=== PATIENT | male | born 1965 | race Caucasian/White ===

== ENCOUNTER 2016-06-11 07:39 | Emergency (ER) | payer BC ==
[2016-06-11 08:00] VITALS: BP 127/81; PULSE 107; RESP 16; TEMP 97.8
--- NOTE | 2016-06-11 08:51 | ED ---
Male Urogenital HPI - General Chief complaint: Urogenital Stated complaint: Male gu Time Seen by Provider: 06/11/16 08:37 Source: patient, RN notes reviewed Mode of arrival: ambulatory Limitations: no limitations - History of Present Illness Initial comments: This patient is a 50-year-old man with previous history of prostate cancer, status post resection about one year ago. The patient states that he had taken an injection of medication for erectile dysfunction, and then has had an erection lasting over 4 hours. He was advised by his urologist that when this occurred he should be checked in the emergency department. The patient is denying any pain to the penis, testicles or groin area. The patient states that he had not been having any abnormalities of urination prior to taking the medication. The patient states that subsequent to arriving in the emergency department he has had detumescence of his penis. MD Complaint: other Onset/Timin -: hour(s) Location: penis Quality: other (No pain) Improves with: none Worsens with: none Reports: denies other symptoms - Related Data Home Medications Medication Instructions Recorded Confirmed Desvenlafaxine Succinate [Pristiq] 50 mg PO DAILY 06/11/16 06/11/16 Losartan Potassium 100 mg PO DAILY 06/11/16 06/11/16 buPROPion HCL [Wellbutrin XL] 150 mg PO DAILY 06/11/16 06/11/16 valACYclovir [Valtrex] 500 mg PO DAILY 06/11/16 06/11/16 Allergies Allergy/AdvReac Type Severity Reaction Status Date / Time No Known Allergies Allergy Verified 06/11/16 07:57 Review of Systems ROS Statement: Those systems with pertinent positive or pertinent negative responses have been documented in the HPI. ROS Other: All systems not noted in ROS Statement are negative. Constitutional: Denies: fever, chills Gastrointestinal: Denies: abdominal pain Genitourinary: Reports: as per HPI. Denies: dysuria, hematuria, discharge, testicular pain, testicular mass Musculoskeletal: Denies: back pain Skin: Denies: rash Past Medical History Additional Past Medical History / Comment(s): PROSTATE CANCER History of Any Multi-Drug Resistant Organisms: None Reported Additional Past Surgical History / Comment(s): PROSTATE REMOVED Past Psychological History: No Psychological Hx Reported Smoking Status: Never smoker Past Alcohol Use History: Occasional Past Drug Use History: Unable to Obtain General Exam Limitations: no limitations General appearance: alert, in no apparent distress GI/Abdominal exam: Present: soft. Absent: distended, tenderness, guarding, rebound, mass, hernia exam: Present: normal inspection, circumcision, other (Penis is in the flaccid state, normal to inspection.). Absent: testicular tenderness, scrotal swelling Extremities exam: Absent: pedal edema Skin exam: Present: warm, dry, intact, normal color Course Vital Signs 06/11/16 07:57 Temperature 97.8 F Pulse Rate 107 H Respiratory 16 Rate Blood Pressure 127/81 O2 Sat by Pulse 96 Oximetry Medical Decision Making - Medical Decision Making Patient's 50-year-old man who does take medications for erectile dysfunction secondary to states surgery. He arrived for evaluation of prolonged erection, but has had resolution of this while waiting in the emergency department. The exam is within normal limits at this point and will have the patient follow up with his urologist as needed. Disposition Clinical Impression: Priapism Disposition: HOME SELF-CARE Condition: Good Instructions: Priapism (ED) Referrals: Parvez Rosas MD [Primary Care Provider] - 1-2 days Ari Church MD [STAFF PHYSICIAN] - 1-2 days
== END 2016-06-11 09:25 | disposition home or self-care (01) ==
LOC: EC 07:39
DX: N48.30 Priapism, unspecified (principal); N52.9 Male erectile dysfunction, unspecified; Z85.46 Personal history of malignant neoplasm of prostate; Z79.899 Other long term (current) drug therapy
CPT/HCPCS: 99283

== ENCOUNTER 2018-06-18 14:39 | Inpatient (IN) | payer BC ==
[2018-06-18] MEDS ORDERED: SODIUM CHLORIDE 0.9% 2,000 ML IV STA (14:46)
[2018-06-18] MEDS ORDERED: MORPHINE SULFATE 4 MG/ML SYRINGE IVP STA (14:56)
[2018-06-18] MEDS ORDERED: ONDANSETRON 4 MG/2 ML VIAL IVP STA (14:56)
[2018-06-18 15:13] LABS: Basophils % (A) 0 %; Eosinophils # (A) 0.3 k/uL (0-0.7); Eosinophils % (A) 2 %; HCT 51.3 % (39.0-53.0); HGB 17.2 gm/dL (13.0-17.5); Lymphocytes # (A) 0.8 k/uL (1.0-4.8); Lymphocytes % (A) 6 %; MCH 32.2 pg (25.0-35.0); MCHC 33.5 g/dL (31.0-37.0); MCV 96.1 fL (80.0-100.0); Mean Platelet Volume 5.8; Monocytes # (A) 0.6 k/uL (0-1.0); Monocytes % (A) 5 %; Neutrophils # (A) 11.1 k/uL (1.3-7.7); Neutrophils % (A) 85 %; Platelet Count 217 k/uL (150-450); RBC 5.34 m/uL (4.30-5.90); RDW 12.4 % (11.5-15.5); WBC 13.1 k/uL (3.8-10.6)
--- NOTE | 2018-06-18 15:16 | ED ---
Abdominal Pain HPI - General Chief Complaint: Abdominal Pain Stated Complaint: abn ct scan - sent by doctor Time Seen by Provider: 06/18/18 14:46 Source: patient, RN notes reviewed Mode of arrival: ambulatory Limitations: no limitations - History of Present Illness Initial Comments: 52-year-old male presents emergency department for abnormal outpatient CT. Patient states he saw his PCP at the beginning week for abdominal pain, bloating feeling and also constipation. Patient had CT and sent tears CT shows evidence of pancreatitis. Patient has no history of finger test he does admit that he drinks alcohol almost daily. Patient denies chest pain, shortness breath. He's had prior prostatectomy no other abdominal surgeries. - Related Data Home Medications Medication Instructions Recorded Confirmed Desvenlafaxine Succinate [Pristiq] 50 mg PO DAILY 06/11/16 06/18/18 Losartan Potassium 100 mg PO DAILY 06/11/16 06/18/18 buPROPion HCL [Wellbutrin XL] 150 mg PO DAILY 06/11/16 06/18/18 valACYclovir [Valtrex] 500 mg PO DAILY 06/11/16 06/18/18 ALPRAZolam [Xanax] 0.5 mg PO TID PRN 06/18/18 06/18/18 Acetaminophen Tab [Tylenol Tab] 650 mg PO Q4H PRN 06/18/18 06/18/18 Albuterol Sulfate [Proair Hfa] 1 puff INHALATION Q6HR PRN 06/18/18 06/18/18 Multivitamin,Therapeutic [Thera] 1 tab PO DAILY 06/18/18 06/18/18 Testosterone Cypionate 160 mg IM Q7D 06/18/18 06/18/18 [Depo-Testosterone] Allergies Allergy/AdvReac Type Severity Reaction Status Date / Time No Known Allergies Allergy Verified 06/18/18 15:21 Review of Systems ROS Statement: Those systems with pertinent positive or pertinent negative responses have been documented in the HPI. ROS Other: All systems not noted in ROS Statement are negative. Past Medical History Additional Past Medical History / Comment(s): PROSTATE CANCER History of Any Multi-Drug Resistant Organisms: None Reported Additional Past Surgical History / Comment(s): PROSTATE REMOVED Past Psychological History: No Psychological Hx Reported Smoking Status: Never smoker Past Alcohol Use History: Occasional Past Drug Use History: Marijuana General Exam Limitations: no limitations General appearance: alert, in no apparent distress Head exam: Present: atraumatic, normocephalic, normal inspection Eye exam: Present: normal appearance, PERRL, EOMI. Absent: scleral icterus, conjunctival injection, periorbital swelling ENT exam: Present: normal exam, normal oropharynx, mucous membranes moist Neck exam: Present: normal inspection. Absent: tenderness, meningismus, lymphadenopathy Respiratory exam: Present: normal lung sounds bilaterally. Absent: respiratory distress, wheezes, rales, rhonchi, stridor Cardiovascular Exam: Present: normal rhythm, tachycardia, normal heart sounds. Absent: systolic murmur, diastolic murmur, rubs, gallop, clicks GI/Abdominal exam: Present: soft, tenderness, normal bowel sounds. Absent: distended, guarding, rebound, rigid Back exam: Absent: CVA tenderness (R), CVA tenderness (L) Skin exam: Present: warm, dry, intact, normal color. Absent: rash Course Vital Signs 06/18/18 06/18/18 14:42 15:31 Temperature 98.6 F Pulse Rate 113 H 99 Respiratory 18 18 Rate Blood Pressure 143/86 123/84 O2 Sat by Pulse 99 99 Oximetry Medical Decision Making - Medical Decision Making 52-year-old male presented for abdominal pain. Patient's found to have acute pancreatitis on CT. Patient lipase within normal limits. Patient will be admitted and evaluated with IV hydration and pain control. - Lab Data Result diagrams: 06/18/18 14:55 06/18/18 14:55 Lab Results 06/18/18 06/18/18 06/18/18 Range/Units 14:55 14:55 14:55 WBC 13.1 H (3.8-10.6) k/uL RBC 5.34 (4.30-5.90) m/uL Hgb 17.2 (13.0-17.5) gm/dL Hct 51.3 (39.0-53.0) % MCV 96.1 (80.0-100.0) fL MCH 32.2 (25.0-35.0) pg MCHC 33.5 (31.0-37.0) g/dL RDW 12.4 (11.5-15.5) % Plt Count 217 (150-450) k/uL Neutrophils % 85 % Lymphocytes % 6 % Monocytes % 5 % Eosinophils % 2 % Basophils % 0 % Neutrophils # 11.1 H (1.3-7.7) k/uL Lymphocytes # 0.8 L (1.0-4.8) k/uL Monocytes # 0.6 (0-1.0) k/uL Eosinophils # 0.3 (0-0.7) k/uL Basophils # 0.0 (0-0.2) k/uL PT (9.0-12.0) sec INR (<1.2) APTT (22.0-30.0) sec Sodium 133 L (137-145) mmol/L Potassium 4.0 (3.5-5.1) mmol/L Chloride 92 L (98-107) mmol/L Carbon Dioxide 27 (22-30) mmol/L Anion Gap 14 mmol/L BUN 18 (9-20) mg/dL Creatinine 1.20 (0.66-1.25) mg/dL Est GFR (CKD-EPI)AfAm 81 (>60 ml/min/1.73 sqM) Est GFR (CKD-EPI)NonAf 70 (>60 ml/min/1.73 sqM) Glucose 80 (74-99) mg/dL Plasma Lactic Acid Les 1.0 (0.7-2.0) mmol/L Calcium 8.6 (8.4-10.2) mg/dL Total Bilirubin 2.2 H (0.2-1.3) mg/dL AST 30 (17-59) U/L ALT 48 (21-72) U/L Alkaline Phosphatase 86 (38-126) U/L Total Protein 7.4 (6.3-8.2) g/dL Albumin 4.2 (3.5-5.0) g/dL Amylase 69 (30-110) U/L Lipase 301 H (23-300) U/L Urine Color Urine Appearance (Clear) Urine pH (5.0-8.0) Ur Specific [place] (1.001-1.035) Urine Protein (Negative) Urine Glucose (UA) (Negative) Urine Ketones (Negative) Urine Blood (Negative) Urine Nitrite (Negative) Urine Bilirubin (Negative) Urine Urobilinogen (<2.0) mg/dL Ur Leukocyte Esterase (Negative) Urine WBC (0-5) /hpf Ur Squamous Epith Cells (0-4) /hpf 06/18/18 06/18/18 Range/Units 14:55 14:55 WBC (3.8-10.6) k/uL RBC (4.30-5.90) m/uL Hgb (13.0-17.5) gm/dL Hct (39.0-53.0) % MCV (80.0-100.0) fL MCH (25.0-35.0) pg MCHC (31.0-37.0) g/dL RDW (11.5-15.5) % Plt Count (150-450) k/uL Neutrophils % % Lymphocytes % % Monocytes % % Eosinophils % % Basophils % % Neutrophils # (1.3-7.7) k/uL Lymphocytes # (1.0-4.8) k/uL Monocytes # (0-1.0) k/uL Eosinophils # (0-0.7) k/uL Basophils # (0-0.2) k/uL PT 10.0 (9.0-12.0) sec INR 0.9 (<1.2) APTT 27.2 (22.0-30.0) sec Sodium (137-145) mmol/L Potassium (3.5-5.1) mmol/L Chloride (98-107) mmol/L Carbon Dioxide (22-30) mmol/L Anion Gap mmol/L BUN (9-20) mg/dL Creatinine (0.66-1.25) mg/dL Est GFR (CKD-EPI)AfAm (>60 ml/min/1.73 sqM) Est GFR (CKD-EPI)NonAf (>60 ml/min/1.73 sqM) Glucose (74-99) mg/dL Plasma Lactic Acid Les (0.7-2.0) mmol/L Calcium (8.4-10.2) mg/dL Total Bilirubin (0.2-1.3) mg/dL AST (17-59) U/L ALT (21-72) U/L Alkaline Phosphatase (38-126) U/L Total Protein (6.3-8.2) g/dL Albumin (3.5-5.0) g/dL Amylase (30-110) U/L Lipase (23-300) U/L Urine Color Light Yellow Urine Appearance Clear (Clear) Urine pH 6.0 (5.0-8.0) Ur Specific [place] 1.026 (1.001-1.035) Urine Protein Negative (Negative) Urine Glucose (UA) Negative (Negative) Urine Ketones 1+ H (Negative) Urine Blood Trace H (Negative) Urine Nitrite Negative (Negative) Urine Bilirubin Negative (Negative) Urine Urobilinogen <2.0 (<2.0) mg/dL Ur Leukocyte Esterase Negative (Negative) Urine WBC <1 (0-5) /hpf Ur Squamous Epith Cells <1 (0-4) /hpf Disposition Clinical Impression: Acute pancreatitis, Abdominal pain Disposition: ADMITTED IP TO THIS HOSP Condition: Fair Referrals: Parvez Rosas MD [Primary Care Provider] - 1-2 days
[2018-06-18 15:19] LABS: Appearance,Urine Clear (Clear); Bilirubin,Urine Negative (Negative); Blood,Urine Trace (Negative); Color,Urine Light Yellow; Glucose,Urine (UA) Negative (Negative); Ketones,Urine 1+ (Negative); Leukocyte Esterase,Urine Negative (Negative); Nitrite,Urine Negative (Negative); Protein,Urine Negative (Negative); Specific Gravity,Urine 1.026 (1.001-1.035); Squamous Epithelial Cell,Urine <1 /hpf (0-4); Urobilinogen,Urine <2.0 mg/dL (<2.0); WBC,Urine <1 /hpf (0-5)
[2018-06-18 15:23] LABS: Albumin 4.2 g/dL (3.5-5.0); Calcium 8.6 mg/dL (8.4-10.2); Total Bilirubin 2.2 mg/dL (0.2-1.3); Total Protein 7.4 g/dL (6.3-8.2)
[2018-06-18 15:27] LABS: INR 0.9 (<1.2); Partial Thromboplastin Time 27.2 sec (22.0-30.0)
[2018-06-18] MEDS ORDERED: NALOXONE 0.4 MG/ML 1 ML VIAL IV PRN (15:42)
[2018-06-18] MEDS ORDERED: MORPHINE SULFATE 4 MG/ML SYRINGE IV PRN (15:42)
[2018-06-18] MEDS ORDERED: ONDANSETRON 4 MG/2 ML VIAL IVP PRN (15:42)
[2018-06-18] MEDS ORDERED: LORazepam 2 MG/ML INJ IV PRN ×3 (15:43)
[2018-06-18] MEDS ORDERED: SODIUM CHLORIDE 0.9% 1,000 ML IV SCH (15:45)
[2018-06-18 17:52] VITALS: BMI 26.5
[2018-06-18] MEDS: THIAMINE 100 MG TAB PO SCH (18:00)
[2018-06-18] MEDS ORDERED: ACETAMINOPHEN TAB 325 MG TAB PO PRN (18:35)
[2018-06-18] MEDS ORDERED: ALBUTEROL NEBULIZED 2.5 MG/3 ML INHALATION PRN (18:35)
[2018-06-18] MEDS: HYDROmorphone 0.5 MG/0.5 ML SYRINGE IVP PRN (20:02)
[2018-06-18] MEDS: DIAZEPAM 5 MG TAB PO SCH (22:43)
[2018-06-18] MEDS: ENOXAPARIN 40 MG/0.4 ML SYRINGE SQ SCH (22:43)
[2018-06-18] MEDS: LACTATED RINGERS 1,000 ML IV SCH (22:44)
--- NOTE | 2018-06-18 23:22 | HP ---
HISTORY AND PHYSICAL DATE OF ADMISSION: 06/18/2018 DATE OF SERVICE: 06/18/2018 PRESENTING COMPLAINT: Abdominal pain. HISTORY OF PRESENTING COMPLAINT: This is a 52-year-old patient who follows with Dr. Rosas out of [place]. Chronic stable medical conditions include hypertension, surgery for prostate cancer, herpes, anxiety and depression which are controlled. Patient has been drinking anywhere from 3/4 to a pint a day for more than 30 years. Patient 4 days ago started off with increasing abdominal pain, distention, bloating, nausea, and went to see Dr. Rosas, who did order a CT scan of the abdomen. The patient has not had a bowel movement for [address] scan came back showing some edema in the tail of the pancreas, and the patient was therefore admitted to the hospital, made n.p.o. Patient's amylase was 69, lipase was 301. There has been no fever or chills. No vomiting. White count was slightly elevated. Patient's abdominal pain is still present, though better. REVIEW OF SYSTEMS: CONSTITUTIONAL: Tired. HEENT: None. RESPIRATORY: None. CARDIOVASCULAR: None. GASTROINTESTINAL: As above. GENITOURINARY: None. MUSCULOSKELETAL: None. DERMATOLOGICAL: None. HEMATOLOGICAL: None. LYMPHATICS: None. PSYCHIATRY: None. NEUROLOGICAL: None. PAST MEDICAL HISTORY: 1. Hypertension. 2. Prostate cancer with surgery. 3. Herpes. PAST SURGICAL HISTORY: Prostatectomy. PSYCH HISTORY: Anxiety, depression. SOCIAL HISTORY: Drinks anywhere from half to a pint of vodka a day. No smoking. Marijuana rarely. Patient lives with his daughter and is an electrician apprentice powerhouse by trade. FAMILY HISTORY: Pacemaker placement. HOME MEDICATIONS: 1. Xanax 0.5 p.o. t.i.d. p.r.n. 2. Depo-Testosterone 160 mg IM every 7 days. 3. ProAir 1 puff q.6 p.r.n. 4. Multivitamin 1 tablet p.o. daily. 5. Tylenol 650 mg q.6 p.r.n. 6. Valtrex 500 mg p.o. daily. 7. Wellbutrin XL 150 mg p.o. daily. 8. Losartan 100 mg p.o. daily. 9. Pristiq 50 mg p.o. daily. ALLERGIES: NONE. PHYSICAL EXAMINATION: Temperature 98.6, pulse 113, respiration 18, blood pressure 143/86, pulse ox 99% on room air. GENERAL APPEARANCE: Average build. Lying in bed, slightly anxious-appearing. EYES: Pupils equal. Conjunctival icterus present. HEENT: External appearance of nose and ears normal. Oral cavity normal. NECK: JVD not raised. Mass not palpable. RESPIRATORY: Effort normal. LUNGS: Fair air entry. CARDIOVASCULAR: First and second sounds normal. No edema. ABDOMEN: Minimally distended. Epigastric tenderness. No guarding or rigidity. Liver and spleen not palpable. LYMPHATIC: No lymph node palpable in neck or axillae. PSYCHIATRY: Alert and oriented times x3. Mood and affect slightly anxious-appearing. NEUROLOGICAL: Pupils equal. Cranial nerves grossly intact. Power and sensation grossly intact. DERMATOLOGICAL: There are spider nevi in the upper chest wall. INVESTIGATIONS: White count 13.1, hemoglobin 17.2, potassium 4. BUN and creatinine are normal. Total bilirubin 2.2. Amylase 69, lipase 301. CT scan of the abdomen shows inflammatory changes centered at the pancreatic tail with moderate surrounding inflammatory fat stranding there. ASSESSMENT: 1. Acute pancreatitis with a severe episode starting 4 days ago with some improvement in pain, showing associated findings on the CT scan of the abdomen secondary to chronic alcoholism. 2. Chronic alcoholism. 3. Hyperbilirubinemia. 4. Essential hypertension. 5. Anxiety and depression not otherwise specified. PLAN: At this point, the patient has been made n.p.o. and is given IV fluids. Repeat amylase and lipase in the morning. Start the patient on Valium 2.5 three times a day for DVT prophylaxis. CIWA scale is in place. Patient was counseled about alcohol. Questions were answered. MMODL / IJN: [id number] /
[2018-06-19] MEDS: HYDROmorphone 0.5 MG/0.5 ML SYRINGE IVP PRN ×3 (00:52→12:23)
[2018-06-19] MEDS: LACTATED RINGERS 1,000 ML IV SCH ×3 (04:25→15:30)
[2018-06-19] MEDS: DIAZEPAM 5 MG TAB PO SCH ×3 (05:47→20:44)
[2018-06-19] MEDS: DESVENLAFAXINE SUCCINATE 50 MG TAB.ER.24H PO SCH (07:32)
[2018-06-19] MEDS: LOSARTAN 50 MG TAB PO SCH (07:32)
[2018-06-19] MEDS: buPROPion XL 150 MG TAB.ER.24H PO SCH (07:33)
[2018-06-19] MEDS: FAMOTIDINE 20 MG TAB PO SCH ×2 (07:33→20:44)
[2018-06-19] MEDS: valACYclovir 500 MG TAB PO SCH (07:33)
[2018-06-19] MEDS: ENOXAPARIN 40 MG/0.4 ML SYRINGE SQ SCH (07:33)
[2018-06-19] MEDS ORDERED: PANTOPRAZOLE 40 MG/10 ML VIAL IV SCH (09:00)
[2018-06-19 09:07] LABS: Basophils % (A) 0 %; Eosinophils # (A) 0.2 k/uL (0-0.7); Eosinophils % (A) 2 %; HCT 46.3 % (39.0-53.0); HGB 15.1 gm/dL (13.0-17.5); Lymphocytes # (A) 0.7 k/uL (1.0-4.8); Lymphocytes % (A) 6 %; MCH 32.6 pg (25.0-35.0); MCHC 32.7 g/dL (31.0-37.0); MCV 99.7 fL (80.0-100.0); Mean Platelet Volume 6.4; Monocytes # (A) 0.6 k/uL (0-1.0); Monocytes % (A) 6 %; Neutrophils % (A) 85 %; Platelet Count 201 k/uL (150-450); RBC 4.64 m/uL (4.30-5.90); RDW 12.6 % (11.5-15.5); WBC 10.7 k/uL (3.8-10.6)
[2018-06-19 09:22] LABS: Albumin 3.1 g/dL (3.5-5.0); Calcium 8.3 mg/dL (8.4-10.2); Potassium 4.1 mmol/L (3.5-5.1); Total Bilirubin 1.4 mg/dL (0.2-1.3); Total Protein 5.8 g/dL (6.3-8.2)
[2018-06-19 11:26] LABS: Creatine Kinase 56 U/L (55-170)
[2018-06-19 11:38] LABS: Creatine Kinase MB 0.7 ng/mL (0.0-2.4); Troponin I <0.012 ng/mL (0.000-0.034)
[2018-06-19] MEDS: MULTIVITAMINS, THERA 1 EACH TAB PO SCH (12:23)
[2018-06-19] MEDS: THIAMINE 100 MG TAB PO SCH ×2 (12:23→15:29)
--- NOTE | 2018-06-19 17:57 | PN ---
PROGRESS NOTE DATE OF SERVICE: 06/19/2018 PRESENTING COMPLAINT: Abdominal pain. INTERVAL HISTORY: This patient, who has been drinking for quite a while, presented with acute pancreatitis. Still having abdominal pain. He is on a prophylactic dose of Valium for DTs. Lying in bed. Still required IV pain medications earlier today. REVIEW OF SYSTEMS: Done for constitutional, cardiovascular, GI, pulmonary; relevant findings as above. CURRENT MEDICATIONS: Reviewed. They include IV fluids. PHYSICAL EXAMINATION: VITAL SIGNS: Temperature 98.4, pulse 93, respiration 18, blood pressure 122/68, pulse ox 96% on room air. GENERAL APPEARANCE: Lying in bed, awake. Slightly anxious. EYES: Pupils equal. Conjunctivae icteric. NECK: JVD not raised. Mass not palpable. RESPIRATORY: Effort normal. Lungs are clear. CARDIOVASCULAR: First and second sounds normal. No edema. ABDOMEN: Epigastric tenderness, mild. No guarding or rigidity. Liver and spleen not palpable. PSYCHIATRY: Alert and oriented x3. Mood and affect normal. INVESTIGATIONS: White count 10.7, potassium 4.1. Amylase 35, lipase 208, total bilirubin 1.4. ASSESSMENT: 1. Acute pancreatitis with some clinical improvement secondary to alcoholism. 2. Chronic alcoholism. 3. Hyperbilirubinemia, improving. 4. Essential hypertension. 5. Anxiety, depression not otherwise specified. PLAN: Will start the patient on clear liquids. Other medication and treatment plan to continue. MMODL / IJN: [id number] /
[2018-06-20] MEDS: LACTATED RINGERS 1,000 ML IV SCH ×4 (00:43→22:11)
[2018-06-20] MEDS: FAMOTIDINE 20 MG TAB PO SCH ×2 (08:31→22:11)
[2018-06-20] MEDS: LOSARTAN 50 MG TAB PO SCH (08:31)
[2018-06-20] MEDS: DIAZEPAM 5 MG TAB PO SCH ×2 (08:31→22:11)
[2018-06-20] MEDS: ENOXAPARIN 40 MG/0.4 ML SYRINGE SQ SCH (08:32)
[2018-06-20] MEDS: buPROPion XL 150 MG TAB.ER.24H PO SCH (08:32)
[2018-06-20] MEDS: DESVENLAFAXINE SUCCINATE 50 MG TAB.ER.24H PO SCH (08:32)
[2018-06-20] MEDS: valACYclovir 500 MG TAB PO SCH (08:32)
[2018-06-20] MEDS: THIAMINE 100 MG TAB PO SCH ×2 (13:02→17:36)
[2018-06-20] MEDS: MULTIVITAMINS, THERA 1 EACH TAB PO SCH (13:02)
--- NOTE | 2018-06-21 00:48 | PN ---
PROGRESS NOTE DATE OF SERVICE: 06/20/2018. PRESENTING COMPLAINT: Acute pancreatitis. INTERVAL HISTORY: This patient presented with alcohol-induced acute pancreatitis. Did better with clear liquids. Had some pain last night on the left side. Doing better this morning. Also on a prophylactic dose of Valium, doing better. REVIEW OF SYSTEMS: Done for constitutional, cardiovascular, GI, pulmonary; relevant findings as above. CURRENT MEDICATIONS: Reviewed, that include Valium. PHYSICAL EXAMINATION: Temperature 98.4, pulse 90, respirations 16, blood pressure 150/86, pulse ox 98% on room air. GENERAL APPEARANCE: Sitting up comfortable. EYES: Pupils equal. Conjunctivae normal. EYES: Pupils equal. Conjunctiva icteric. NECK: JVD not raised. Mass not palpable. Respiratory effort normal. LUNGS: Clear. CARDIOVASCULAR: 1st and 2nd heart sounds. No edema. ABDOMEN: Soft. No tenderness. No guarding or rigidity. Liver and spleen not palpable. PSYCHIATRY: Alert and oriented x3. Mood and affect normal. INVESTIGATIONS: No labs from today. ASSESSMENT: 1. Acute pancreatitis with further clinical improvement secondary to alcoholism. 2. Chronic alcoholism. 3. Hyperbilirubinemia, improving. 4. Essential hypertension. 5. Anxiety and depression, not otherwise specified. PLAN: Care was discussed with the patient. Clinically continues to improve. Will change to full liquid diet this evening and, if tolerated, advance diet tomorrow morning. Care was discussed with the patient. Encouraged to ambulate. TERI / ROB: [id number] /
[2018-06-21 08:05] VITALS: RESP 16
[2018-06-21] MEDS: FAMOTIDINE 20 MG TAB PO SCH (08:45)
[2018-06-21] MEDS: valACYclovir 500 MG TAB PO SCH (08:45)
[2018-06-21] MEDS: ENOXAPARIN 40 MG/0.4 ML SYRINGE SQ SCH (08:45)
[2018-06-21] MEDS: DESVENLAFAXINE SUCCINATE 50 MG TAB.ER.24H PO SCH (08:45)
[2018-06-21] MEDS: buPROPion XL 150 MG TAB.ER.24H PO SCH (08:45)
[2018-06-21] MEDS: LOSARTAN 50 MG TAB PO SCH (08:45)
[2018-06-21] MEDS ORDERED: DIAZEPAM 5 MG TAB PO SCH (09:00)
[2018-06-21 10:08] LABS: ALT 34 U/L (21-72); AST 30 U/L (17-59); Albumin 3.4 g/dL (3.5-5.0); Alkaline Phosphatase 68 U/L (38-126); Anion Gap 9 mmol/L; Blood Urea Nitrogen 8 mg/dL (9-20); Calcium 9.4 mg/dL (8.4-10.2); Carbon Dioxide 30 mmol/L (22-30); Chloride 97 mmol/L (98-107); Glucose 141 mg/dL (74-99); Potassium 4.3 mmol/L (3.5-5.1); Sodium 136 mmol/L (137-145); Total Bilirubin 0.9 mg/dL (0.2-1.3); Total Protein 6.4 g/dL (6.3-8.2)
[2018-06-21 14:51] VITALS: BP 152/96; PULSE 104; TEMP 97.1
--- NOTE | 2018-06-22 01:11 | DS ---
DISCHARGE SUMMARY DATE OF ADMISSION: 06/18/2018 DATE OF DISCHARGE: 06/21/2018. FINAL DIAGNOSES: 1. Acute pancreatitis secondary to alcoholism. 2. Chronic alcoholism. 3. Hyperbilirubinemia, improving. 4. Essential hypertension. 5. Anxiety/depression not otherwise specified. HOSPITAL COURSE: This patient who drinks a significant amount of alcohol for a long-standing presented with abdominal pain and a CT scan done by his PCP did confirm acute pancreatitis. The patient's pancreatic numbers were not too bad, but he is having some abdominal symptoms. The patient was treated conservatively, made n.p.o. on IV fluids and numbers resulted normal. The patient at length was discussed especially today about not to touch the alcohol as it is very detrimental to him. The patient's total bilirubin did come down from 2.2 down to 0.9. Several questions were answered. PHYSICAL EXAMINATION: VITAL SIGNS: Temperature 97.1. Pulse 59, respirations 16, blood pressure 152/96, pulse ox 96% on room air. ABDOMEN: Soft, nontender. Discussion and discharge planning more than 35 minutes. DISCHARGE MEDICATIONS: 1. Pristiq 50 mg p.o. daily. 2. Losartan 100 mg p.o. daily. 3. Wellbutrin XL 150 mg p.o. daily. 4. Valtrex 500 mg p.o. daily. 5. Xanax 0.5 p.o. t.i.d. p.r.n. 6. Tylenol 650 mg q.4 p.r.n. 7. ProAir 1 puff q.6h p.r.n. 8. Multivitamin 1 tablet p.o. daily. 9. Antabuse 500 mg p.o. daily for 7 days then 250 mg a day. 10.Pepcid 20 mg b.i.d. DIET: Low-fat soft bland. No alcohol. FOLLOWUP: Follow up with Dr. Rosas in [address] Rosas in [place]. MMODL / IJN: [id number] /
== END 2018-06-21 15:56 | disposition home or self-care (01) | DRG 439 ==
LOC: EC 14:39 → 4MS4W 15:39
PROVIDERS: ADMIT Hospitalist; ATTEND Hospitalist
DX: K85.20 Alcohol induced acute pancreatitis without necrosis or infection (principal); R17 Unspecified jaundice; F10.20 Alcohol dependence, uncomplicated; I10 Essential (primary) hypertension; F32.9 Major depressive disorder, single episode, unspecified; F41.9 Anxiety disorder, unspecified; K59.00 Constipation, unspecified; Z79.890 Hormone replacement therapy; Z79.899 Other long term (current) drug therapy; Z90.79 Acquired absence of other genital organ(s); Z85.46 Personal history of malignant neoplasm of prostate; Z86.19 Personal history of other infectious and parasitic diseases
CPT/HCPCS: 36415; 80053; 81001; 82150; 82550; 82553; 83605; 83690; 84484; 85025; 85610; 85730; 93005; 96361; 96374; 96375; 99284

== ENCOUNTER → 2018-06-18 | Outpatient (CLI) | payer BC ==
--- NOTE | 2018-06-18 14:25 | CT ---
EXAMINATION TYPE: CT abdomen pelvis w con DATE OF EXAM: 06/18/2018 COMPARISON: NONE HISTORY: 52-year-old male Generalized abdominal pain. TECHNIQUE: Contiguous axial scanning of the abdomen and pelvis following administration of 100 ml Iso skip 300 IV contrast. Delayed images through the kidneys and coronal/sagittal reconstructions perform ed. CT DLP: 811.1 mGycm Automated exposure control for dose reduction was used. FINDINGS: Heart normal size without pericardial effusion. Strandy atelectasis or scarring at the left base. No pleural effusion. No focal liver lesion or biliary ductal dilatation. Portal venous system is patent. Gallbladder, adrenal glands, kidneys, and spleen appear within normal limits. There is inflammatory change centered along the pancreatic tail with tracking plate like fluid along the left retroperitoneum measuring 4.7 cm wide, 9 mm thick, and 3.0 cm craniocaudal. There is focal h ypodensity within the inferior aspect of the pancreatic tail and moderate surrounding inflammatory fa t stranding here. Prominent ingested debris and contrast material in the cecum which measures 5.7 cm wide. Small bowel loops are mildly dilated measuring up to 3.5 cm without a discrete transition point. Moderate stool i n the ascending colon. No pericolonic inflammatory change seen. No mesenteric or retroperitoneal lymphadenopathy. Bladder not distended. No abnormal fluid collection in the pelvis pelvic lymphadenopathy seen. Bones: Mild degenerative changes at the hips. Old healed right posterior rib fracture deformities. No osseous destructive process. IMPRESSION: 1. ACUTE PANCREATITIS CENTERED AT THE PANCREATIC TAIL. THERE IS A PLATELIKE PERIPANCREATIC FLUID ADELINA ECTION TRACKING ALONG THE LEFT RETROPERITONEUM MEASURING 4.7 X 0.9 X 3.0 CM. 2. THE INFERIOR ASPECT OF THE PANCREATIC TAIL SHOWS FOCAL HYPODENSITY. CLOSE CLINICAL SURVEILLANCE RE COMMENDED TO EXCLUDE AN EARLY REGION OF PANCREATIC NECROSIS. 3. MILDLY DILATED SMALL BOWEL LOOPS MEASURING UP TO 3.5 CM SUGGESTING SECONDARY ILEUS.
== END | disposition home or self-care (01) ==
LOC: RADCTMAIN 12:13
PROVIDERS: ATTEND Family Medicine
DX: K85.90 Acute pancreatitis without necrosis or infection, unspecified (principal)
CPT/HCPCS: 74177; Q9967

== ENCOUNTER → 2018-10-29 | Outpatient (CLI) | payer BC ==
--- NOTE | 2018-10-29 12:09 | CT ---
EXAMINATION TYPE: CT abdomen pelvis wo/w con DATE OF EXAM: 10/29/2018 COMPARISON: 06/18/2018 HISTORY: Generalized abdominal pain CT DLP: 1022.6 mGycm Automated exposure control for dose reduction was used. TECHNIQUE: Helical acquisition of images was performed from the lung bases through the pelvis. CONTRAST: Performed with Oral Contrast and without and with IV Contrast, patient injected with 100 mL of Isovue 300. FINDINGS: LUNG BASES: Minimal focal pleural thickening is seen of the right lung base on series 6 image 1 measu ring 6 mm. Minimal strand-like atelectasis at the lung bases. LIVER/GB: Hepatic steatosis is evident. No suspicious hepatic lesion. No intrahepatic biliary duct di latation. No radiopaque calculi. Small intramuscular lipoma seen adjacent to the liver on series 5 im age 21 measuring 1 cm without internal complexity. PANCREAS: No ductal dilatation. Pancreas enhances homogeneously. The previously seen inflammatory adriana nge surrounding the pancreatic tail has resolved in the interim. SPLEEN: No enlargement. ADRENALS: No nodularity or thickening. KIDNEYS: Unenhanced images demonstrate no evidence of nephrolithiasis. Very minimal nonspecific bilat eral perinephric fat stranding is seen. The kidneys enhance symmetrically and are without hydronephro sis. On delayed images the kidneys also excrete symmetrically. FREE AIR: No free air is visualized. ADENOPATHY: Superficial inguinal lymph nodes do measure up to 1.0 cm in short axis. No greater than 1 cm short axis lymph node is seen in the abdomen or pelvis. REPRODUCTIVE ORGANS: Prostate gland is either extremely diminutive and atrophic or absent. There is e ither low lying urinary bladder or prior TURP. URINARY BLADDER: No significant abnormality is seen. OSSEOUS STRUCTURES: Again there are old healed fracture deformities of the ribs on the right. Mild m ultilevel degenerative changes of the spine and hips. BOWEL: Moderate degree colonic fecal stasis. No dilated large or small bowel. OTHER: Very small fat filled periumbilical hernia. Focal inflammatory fat stranding is seen in the right superficial inguinal region extending into the superior right scrotum with questionable skin thickening measuring up to 5 mm. No subcutaneous emphys wilbert seen at the time the examination. IMPRESSION: 1.FAT STRANDING IN THE RIGHT SUPERFICIAL INGUINAL REGION AND PROMINENT LYMPH NODES EXTENDING INTO THE SUPERIOR SCROTUM WITH QUESTIONABLE SCROTAL WALL THICKENING. CORRELATE FOR CELLULITIS OR RECENT TRAUM A. NO CURRENT SUBCUTANEOUS EMPHYSEMA IS SEEN AT THE TIME OF EXAMINATION TO SUGGEST NECROTIZING FASCII TIS ALTHOUGH CLOSE CLINICAL SURVEILLANCE WOULD BE RECOMMENDED IF THERE IS NO HISTORY OF CELLULITIS OR TRAUMA. 2. THE PREVIOUSLY SEEN INFLAMMATORY CHANGE AND HYPODENSITY AT THE PANCREATIC TAIL HAVE ENTIRELY RESOL AVILA IN THE INTERIM. NO PANCREATIC DUCTAL DILATATION OR MASSES SEEN. NO PERIPANCREATIC FLUID COLLECTIO N.
== END | disposition home or self-care (01) ==
LOC: RADCTMAIN 09:39
PROVIDERS: ATTEND Family Medicine
DX: R10.84 Generalized abdominal pain (principal)
CPT/HCPCS: 74178; Q9967

== ENCOUNTER → 2019-11-01 | Outpatient (CLI) | payer BC | END | disposition home or self-care (01) | LOC: LABWHC1 10:34 | PROVIDERS: ATTEND Surgery Plastic and Reconstructive Surgery | DX: Z11.59 Encounter for screening for other viral diseases (principal) ==

== ENCOUNTER 2019-11-03 08:21 | Day surgery (SDC) | payer BC ==
[2019-10-29 15:53] VITALS: BMI 26.5
--- NOTE | 2019-11-02 20:43 | P.GSHP ---
History of Present Illness H&P Date: 11/03/19 CHIEF COMPLAINT: Colon screen HISTORY OF PRESENT ILLNESS: The patient is a 54-year-old male who presents for colon screen. Lower endoscopy was offered for further evaluation and management. PAST MEDICAL HISTORY: Please see list. PAST SURGICAL HISTORY: Please see list. MEDICATIONS: Please see list. ALLERGIES: Please see list. SOCIAL HISTORY: No illicit drug use FAMILY HISTORY: No reports of Crohn disease or ulcerative colitis. REVIEW OF ORGAN SYSTEMS: CONSTITUTIONAL: No reports of fevers or chills. PHYSICAL EXAM: VITAL SIGNS: Stable GENERAL: Well-developed pleasant in no acute distress. HEENT: No scleral icterus. Extraocular movements grossly intact. Moist buccal mucosa. NECK: Supple without lymphadenopathy. CHEST: Unlabored respirations. Equal bilateral excursions. CARDIOVASCULAR: Regular rate and rhythm. Distal 2+ pulses. ABDOMEN: Soft, nontender, nondistended. MUSCULOSKELETAL: No clubbing, cyanosis, or edema. ASSESSMENT: 1. Colon screen. PLAN: 1. Recommend proceeding with a lower endoscopy Past Medical History Past Medical History: Cancer, GERD/Reflux Additional Past Medical History / Comment(s): PROSTATE CANCER, herpes, allergies, BLOOD PRESSURE CONTROLLED AT THIS TIME History of Any Multi-Drug Resistant Organisms: None Reported Past Surgical History: Prostate Surgery Additional Past Surgical History / Comment(s): PROSTATE REMOVED Past Anesthesia/Blood Transfusion Reactions: No Reported Reaction Smoking Status: Never smoker - Past Family History Mother Family Medical History: AICD/Pacemaker Medications and Allergies Home Medications Medication Instructions Recorded Confirmed Type Desvenlafaxine Succinate [Pristiq] 50 mg PO DAILY 06/11/16 10/29/19 History buPROPion HCL [Wellbutrin XL] 150 mg PO DAILY 06/11/16 10/29/19 History valACYclovir [Valtrex] 500 mg PO DAILY 06/11/16 10/29/19 History ALPRAZolam [Xanax] 0.5 mg PO TID PRN 06/18/18 10/29/19 History Albuterol Sulfate [Proair Hfa] 1 puff INHALATION Q6HR PRN 06/18/18 10/29/19 History Multivitamin,Therapeutic [Thera] 1 tab PO DAILY 06/18/18 10/29/19 History Testosterone Cypionate 160 mg IM Q7D 06/18/18 10/29/19 History [Depo-Testosterone] Famotidine [Pepcid] 20 mg PO DAILY 10/29/19 10/29/19 History Oxybutynin Chloride [Oxybutynin 15 mg PO DAILY 10/29/19 10/29/19 History Chloride ER] Allergies Allergy/AdvReac Type Severity Reaction Status Date / Time No Known Allergies Allergy Verified 10/29/19 15:39
[~2019-11-03 08:21] MED LIST: LACTATED RINGERS 1,000 ML IV SCH; LIDOCAINE 1% (10MG/ML) FOR IV START INTRADERMA PRN
[2019-11-03 08:41] VITALS: TEMP 98
[2019-11-03] MEDS ORDERED: PROPOFOL 10 MG/ML 20 ML VIAL IV ONE (09:06)
--- NOTE | 2019-11-03 09:39 | P.HPADDEND ---
H&P Addendum H&P Addendum Date: 11/03/19 Patient reports having multiple colonoscopies including past history of colon polyps over colonoscopy over 5 years ago. Will proceed with lower endoscopy
--- NOTE | 2019-11-03 09:42 | P.PCN ---
Date of Procedure: 11/03/19 Description of Procedure: PREOPERATIVE DIAGNOSIS: Personal history of colon polyps POSTOPERATIVE DIAGNOSIS: Personal history of colon polyps Tubular adenoma, cecum Tubular adenoma, ascending colon Internal hemorrhoids, grade 2 OPERATION: Colonoscopy to the ileocecal valve and appendiceal orifice. Colonoscopy with multiple hot snare polypectomies SURGEON: Marnie Painting MD. ANESTHESIA: MAC. INDICATIONS: The patient is an 54-year-old male who presents with personal history of colon polyps. Last colonoscopy over 5 years. Benefits and risks were described and informed consent was obtained. DESCRIPTION OF PROCEDURE: The patient had undergone Suprep. He had been brought into the operating room and laid in the left lateral decubitus position. After adequate intravenous sedation, the rectum was examined with 2% lidocaine jelly. The prostate was unremarkable. External hemorrhoids were encountered. The rectal tone was within normal limits. No lesions were palpated in the rectal vault. An Olympus colonoscope was advanced until the ileocecal valve and appendiceal orifice were clearly viewed. The prep was fair. No aigmoid diverticulosis was encountered. Multiple colonic polyps were found and snare polypectomy. No evidence of focal colitis was found. Retroflexion of the scope demonstrated grade 2 internal hemorrhoids without active bleeding or inflammation. The colon was desufflated. The patient had tolerated the procedure well. Withdrawal time was over 6 minutes. FINDINGS: Aronchick preparation quality scale 2 (1-5) Internal hemorrhoids, grade 2 External hemorrhoids, grade 2 No arteriovenous malformations. No sigmoid diverticulosis Removal of 2 polyps: - Snare polypectomy cecum/ileocecal valve, 10 mm tubulovillous adenoma polyp. - Snare polypectomy ascending colon, 8 mm flat villous adenoma polyp. No focal colitis. RECOMMENDATIONS: 1. Given severity of tubular adenomas, recommend repeat colonoscopy 2 years, 2021. 2. Recommend at least a 2 day colon prep. Plan - Discharge Summary Discharge Rx Participant: No New Discharge Prescriptions: Continue buPROPion HCL [Wellbutrin XL] 150 mg PO DAILY Desvenlafaxine Succinate [Pristiq] 50 mg PO DAILY valACYclovir [Valtrex] 500 mg PO DAILY ALPRAZolam [Xanax] 0.5 mg PO TID PRN PRN Reason: Anxiety Testosterone Cypionate [Depo-Testosterone] 160 mg IM Q7D Albuterol Sulfate [Proair Hfa] 1 puff INHALATION Q6HR PRN PRN Reason: Shortness Of Breath Multivitamin,Therapeutic [Thera] 1 tab PO DAILY Oxybutynin Chloride [Oxybutynin Chloride ER] 15 mg PO DAILY Famotidine [Pepcid] 20 mg PO DAILY Discharge Medication List Desvenlafaxine Succinate [Pristiq] 50 mg PO DAILY 06/11/16 [History] buPROPion HCL [Wellbutrin XL] 150 mg PO DAILY 06/11/16 [History] valACYclovir [Valtrex] 500 mg PO DAILY 06/11/16 [History] ALPRAZolam [Xanax] 0.5 mg PO TID PRN 06/18/18 [History] Albuterol Sulfate [Proair Hfa] 1 puff INHALATION Q6HR PRN 06/18/18 [History] Multivitamin,Therapeutic [Thera] 1 tab PO DAILY 06/18/18 [History] Testosterone Cypionate [Depo-Testosterone] 160 mg IM Q7D 06/18/18 [History] Famotidine [Pepcid] 20 mg PO DAILY 10/29/19 [History] Oxybutynin Chloride [Oxybutynin Chloride ER] 15 mg PO DAILY 10/29/19 [History] Follow up Appointment(s)/Referral(s): Marnie Painting MD [STAFF PHYSICIAN] - As Needed Patient Instructions/Handouts: *Surgery [facility] - (Anesthesia) Endoscopy Discharge Instructions, Colorectal Polyps (DC), Colonoscopy (DC) Activity/Diet/Wound Care/Special Instructions: Repeat colonoscopy in 2 years, 2021 Discharge Disposition: HOME SELF-CARE
[2019-11-03 10:01] VITALS: BP 126/76; PULSE 74; RESP 18
== END 2019-11-03 10:19 | disposition home or self-care (01) ==
LOC: ORWHC2ENDO 08:21
PROVIDERS: ATTEND Surgery Plastic and Reconstructive Surgery
DX: D12.2 Benign neoplasm of ascending colon (principal); D12.0 Benign neoplasm of cecum; K64.4 Residual hemorrhoidal skin tags; K64.1 Second degree hemorrhoids; Z86.010 Personal history of colon polyps; K21.9 Gastro-esophageal reflux disease without esophagitis; B00.9 Herpesviral infection, unspecified; Z85.46 Personal history of malignant neoplasm of prostate; Z91.048 Other nonmedicinal substance allergy status; Z90.79 Acquired absence of other genital organ(s); Z79.899 Other long term (current) drug therapy; Z79.890 Hormone replacement therapy; Z82.49 Family history of ischemic heart disease and other diseases of the circulatory system
CPT/HCPCS: 88305; 45385; J2704

== ENCOUNTER 2019-11-24 10:15 | Day surgery (SDC) | payer BC ==
[2019-11-22 09:48] VITALS: BMI 25.4
--- NOTE | 2019-11-24 08:27 | P.GSHP ---
History of Present Illness H&P Date: 11/24/19 CHIEF COMPLAINT: GERD HISTORY OF PRESENT ILLNESS: The patient is a 54-year-old male who presents reports gastroesophageal reflux disease. Upper endoscopy was offered for further evaluation and management. PAST MEDICAL HISTORY: Please see list. PAST SURGICAL HISTORY: Please see list. MEDICATIONS: Please see list. ALLERGIES: Please see list. SOCIAL HISTORY: No illicit drug use FAMILY HISTORY: No reports of Crohn disease or ulcerative colitis. REVIEW OF ORGAN SYSTEMS: CONSTITUTIONAL: No reports of fevers or chills. GI: Denies any blood in stools or constipation. PHYSICAL EXAM: VITAL SIGNS: Stable GENERAL: Well-developed and pleasant in no acute distress. HEENT: No scleral icterus. Extraocular movements grossly intact. Moist buccal mucosa. NECK: Supple without lymphadenopathy. CHEST: Unlabored respirations. Equal bilateral excursions. CARDIOVASCULAR: Regular rate and rhythm. Distal 2+ pulses. ABDOMEN: Soft, nondistended. MUSCULOSKELETAL: No clubbing, cyanosis, or edema. ASSESSMENT: 1. Gastroesophageal reflux disease PLAN: 1. Recommend proceeding with an upper endoscopy Past Medical History Past Medical History: Cancer, GERD/Reflux Additional Past Medical History / Comment(s): PROSTATE CANCER, herpes, allergies, BLOOD PRESSURE CONTROLLED AT THIS TIME History of Any Multi-Drug Resistant Organisms: None Reported Past Surgical History: Prostate Surgery Additional Past Surgical History / Comment(s): PROSTATE REMOVED Past Anesthesia/Blood Transfusion Reactions: No Reported Reaction Smoking Status: Never smoker - Past Family History Mother Family Medical History: AICD/Pacemaker Medications and Allergies Home Medications Medication Instructions Recorded Confirmed Type Desvenlafaxine Succinate [Pristiq] 50 mg PO DAILY 06/11/16 11/22/19 History buPROPion HCL [Wellbutrin XL] 150 mg PO DAILY 06/11/16 11/22/19 History valACYclovir [Valtrex] 500 mg PO DAILY 06/11/16 11/22/19 History ALPRAZolam [Xanax] 0.5 mg PO TID PRN 06/18/18 11/22/19 History Albuterol Sulfate [Proair Hfa] 1 puff INHALATION Q6HR PRN 06/18/18 11/22/19 History Multivitamin,Therapeutic [Thera] 1 tab PO DAILY 06/18/18 11/22/19 History Testosterone Cypionate 160 mg IM Q7D 06/18/18 11/22/19 History [Depo-Testosterone] Famotidine [Pepcid] 20 mg PO DAILY 10/29/19 11/22/19 History Oxybutynin Chloride [Oxybutynin 15 mg PO DAILY 10/29/19 11/22/19 History Chloride ER] Allergies Allergy/AdvReac Type Severity Reaction Status Date / Time No Known Allergies Allergy Verified 11/22/19 09:41
[~2019-11-24 10:15] MED LIST changes: -LIDOCAINE 1% (10MG/ML) FOR IV START INTRADERMA PRN
[2019-11-24 10:43] VITALS: TEMP 98
[2019-11-24] MEDS ORDERED: LIDOCAINE 1% INJ 10MG/ML (20 ML MDV) ONE (11:08)
[2019-11-24] MEDS ORDERED: MIDAZOLAM 2 MG/2 ML VIAL ONE (11:08)
[2019-11-24] MEDS ORDERED: PROPOFOL 10 MG/ML 20 ML VIAL IV ONE (11:08)
--- NOTE | 2019-11-24 11:31 | P.PCN ---
Date of Procedure: 11/24/19 Description of Procedure: PREOPERATIVE DIAGNOSIS: History of gastrointestinal bleed Epigastric abdominal pain POSTOPERATIVE DIAGNOSIS: History of gastrointestinal bleed Epigastric abdominal pain Gastroesophageal reflux disease with erosive esophagitis Gastritis OPERATION: Esophagogastroduodenoscopy with biopsies along antrum. SURGEON: Marnie Painting MD ANESTHESIA: MAC. INDICATIONS: The patient is a 54-year-old male who presents with a history of reflux disease. Benefits and risks of the procedure were described. Informed consent was obtained. DESCRIPTION: The patient was brought into the endoscopy suite and laid in the left lateral decubitus position. An Olympus gastroscope was passed along the posterior oropharynx down to the distal esophagus where the squamocolumnar junction was encountered at 40 cm from the incisors. The stomach was entered and no bile reflux was found. Additional findings are listed below. Biopsies with cold forceps were obtained of the antrum. The first through third portion of the duodenum was examined and unremarkable. Retroflexion of the scope confirmed Hill grade 2 lower esophageal valve. The squamocolumnar junction demonstrated LA grade C erosive esophagitis. The stomach was desufflated. The patient tolerated the procedure well. FINDINGS: Squamocolumnar junction 40 cm from the incisors. Diaphragmatic hiatus at 40 cm. Hill grade 2 lower esophageal valve. LA grade C erosive esophagitis. No active duodenitis. Chronic gastritis RECOMMENDATIONS: Upper endoscopy as needed. Plan - Discharge Summary Discharge Rx Participant: No New Discharge Prescriptions: Continue buPROPion HCL [Wellbutrin XL] 150 mg PO DAILY Desvenlafaxine Succinate [Pristiq] 50 mg PO DAILY valACYclovir [Valtrex] 500 mg PO DAILY ALPRAZolam [Xanax] 0.5 mg PO TID PRN PRN Reason: Anxiety Testosterone Cypionate [Depo-Testosterone] 160 mg IM Q7D Albuterol Sulfate [Proair Hfa] 1 puff INHALATION Q6HR PRN PRN Reason: Shortness Of Breath Multivitamin,Therapeutic [Thera] 1 tab PO DAILY Oxybutynin Chloride [Oxybutynin Chloride ER] 15 mg PO DAILY Famotidine [Pepcid] 20 mg PO DAILY Discharge Medication List Desvenlafaxine Succinate [Pristiq] 50 mg PO DAILY 06/11/16 [History] buPROPion HCL [Wellbutrin XL] 150 mg PO DAILY 06/11/16 [History] valACYclovir [Valtrex] 500 mg PO DAILY 06/11/16 [History] ALPRAZolam [Xanax] 0.5 mg PO TID PRN 06/18/18 [History] Albuterol Sulfate [Proair Hfa] 1 puff INHALATION Q6HR PRN 06/18/18 [History] Multivitamin,Therapeutic [Thera] 1 tab PO DAILY 06/18/18 [History] Testosterone Cypionate [Depo-Testosterone] 160 mg IM Q7D 06/18/18 [History] Famotidine [Pepcid] 20 mg PO DAILY 10/29/19 [History] Oxybutynin Chloride [Oxybutynin Chloride ER] 15 mg PO DAILY 10/29/19 [History] Follow up Appointment(s)/Referral(s): Marnie Painting MD [STAFF PHYSICIAN] - 12/14/19 Patient Instructions/Handouts: Gastroesophageal Reflux Disease (DC) Discharge Disposition: HOME SELF-CARE
[2019-11-24 11:33] VITALS: RESP 16
[2019-11-24 12:37] VITALS: BP 122/69; PULSE 83
== END 2019-11-24 12:37 | disposition home or self-care (01) ==
LOC: ORWHC2ENDO 10:15
PROVIDERS: ATTEND Surgery Plastic and Reconstructive Surgery
DX: K29.50 Unspecified chronic gastritis without bleeding (principal); K21.0 Gastro-esophageal reflux disease with esophagitis; K22.10 Ulcer of esophagus without bleeding; Z79.899 Other long term (current) drug therapy; Z85.46 Personal history of malignant neoplasm of prostate; Z82.49 Family history of ischemic heart disease and other diseases of the circulatory system
CPT/HCPCS: 88305; 43239; J2250; J2001; J2704

== ENCOUNTER → 2020-08-17 | Outpatient (CLI) | payer BC ==
[~2020-08-17] MED LIST changes: -LACTATED RINGERS 1,000 ML IV SCH; +REGADENOSON 0.4 MG/5 ML SYRINGE IV PRN
--- NOTE | 2020-08-17 14:00 | ECHOF ---
Referral Reason:R94.31 abnormal EKG MEASUREMENTS -------- HEIGHT: 182.9 cm WEIGHT: 81.6 kg BP: RVIDd: 3.5 cm (< 3.3) IVSd: 1.3 cm (0.6 - 1.1) LVIDd: 5.6 cm (3.9 - 5.3) LVPWd: 1.2 cm (0.6 - 1.1) IVSs: 1.4 cm LVIDs: 4.2 cm LVPWs: 1.6 cm LA Diam: 4.6 cm (2.7 - 3.8) LAESV Index (A-L): 32.35 ml/m Ao Diam: 3.2 cm (2.0 - 3.7) AV Cusp: 2.0 cm (1.5 - 2.6) LA Diam: 4.1 cm (2.7 - 3.8) MV EXCURSION: 18.742 mm (> 18.000) MV EF SLOPE: 105 mm/s (70 - 150) EPSS: 0.8 cm MV E Cesar: 0.57 m/s MV DecT: 214 ms MV A Cesar: 0.67 m/s MV E/A Ratio: 0.86 RAP: 5.00 mmHg RVSP: 17.25 mmHg FINDINGS -------- Sinus rhythm. This was a technically good study. The left ventricular size is normal. There is mild concentric left ventricular hypertrophy. Overa ll left ventricular systolic function is mild-moderately impaired with, an EF between 40 - 45 %. Se ptal Hypokinesis The right ventricle is normal in size. LA is midly dilated 29-33ml/m2. The right atrial size is normal. The aortic valve is trileaflet, and appears structurally normal. No aortic stenosis or regurgitation. Mild mitral regurgitation is present. Mild tricuspid regurgitation present. Right ventricular systolic pressure is normal at < 35 mmHg. There is no pulmonic regurgitation present. The aortic root size is normal. There is no pericardial effusion. CONCLUSIONS -------- 1. The left ventricular size is normal. 2. There is mild concentric left ventricular hypertrophy. 3. Overall left ventricular systolic function is mild-moderately impaired with, an EF between 40 - 45 %. 4. Septal Hypokinesis 5. The right ventricle is normal in size. 6. LA is midly dilated 29-33ml/m2. 7. The right atrial size is normal. 8. The aortic valve is trileaflet, and appears structurally normal. No aortic stenosis or regurgitati on. 9. Mild mitral regurgitation is present. 10. Mild tricuspid regurgitation present. 11. The aortic root size is normal. 12. There is no pericardial effusion. STEAM SHOVEL ENGINEER: Yina Mcrae RDCS
--- NOTE | 2020-08-17 14:54 | NM ---
EXAMINATION TYPE: NM stress lexiscan cardiolite DATE OF EXAM: 08/17/2020 COMPARISON: NONE HISTORY: abnormal EKG TECHNIQUE: After the intravenous administration of 9.7 mCi Tc 99m Sestamibi - Cardiolite resting SPE CT images acquired 45 minutes post injection. The patient received 0.4mg Lexiscan, 25.4 mCi Tc 99m Sestamibi - Stress images obtained [address] injection FINDINGS: Review of stress and rest SPECT images demonstrates no distinct perfusion abnormality. Gated analysi s shows global reduced wall motion with an estimated left ventricular ejection fraction of 33 %. Left ventricular prominence. IMPRESSION: 1. Abnormal ejection fraction of 33%. Left ventricle is prominent correlate for LV dysfunction.
--- NOTE | 2020-08-17 17:57 | P.STRESS ---
- Stress Test Note Stress Test Results/Findings: Exam Performed: NM stress lexiscan cardiolite Exam Date: 08/17/20 Reason for Exam: Abnormal EKG Height: 5 ft 10 in Weight: 81.647 kg Protocol: Lexiscan Stage: na Duration of Exercise: na Resting Heart Rate: 74 Resting Blood Pressure: 146/93 Maximum Achieved Heart Rate: 108 Maximum Achieved Blood Pressure: 146/93 85% PMHR: 143 100% PMHR: 168 METS: na Technologist Comment: Stress Test Results/Findings: At baseline EKG showed normal sinus rhythm, normal axis, left bundle branch block with nonspecific ST-T wave abnormalities Patient recieved IV infusion of Lexiscan 0.4mg and at peak infusion EKG showed no significant change from baseline. Conclusions: 1. Normal EKG response to Lexiscan infusion 2. Nuclear imaging to be reported separately.
== END ==
LOC: RADNMMAIN 07:40
PROVIDERS: ATTEND Family Medicine
DX: I08.1 Rheumatic disorders of both mitral and tricuspid valves (principal); R93.1 Abnormal findings on diagnostic imaging of heart and coronary circulation
CPT/HCPCS: 93017; 93306; 78452; A9500; J2785

== ENCOUNTER 2021-09-26 05:58 | Day surgery (SDC) | payer BC ==
[2021-09-26] MEDS ORDERED: LIDOCAINE 1% (10MG/ML) FOR IV START INTRADERMA PRN (06:04)
[2021-09-26] MEDS ORDERED: LACTATED RINGERS 1,000 ML IV SCH (06:04)
[2021-09-26 06:32] VITALS: TEMP 98.1
[2021-09-26] MEDS ORDERED: MIDAZOLAM 2 MG/2 ML VIAL ONE (07:06)
[2021-09-26] MEDS ORDERED: LIDOCAINE 2% INJ 20 MG/ML (2 ML VIAL) ONE (07:06)
[2021-09-26] MEDS ORDERED: PROPOFOL 10 MG/ML 20 ML VIAL IV ONE (07:06)
[2021-09-26] MEDS ORDERED: fentaNYL (PF) 50 MCG/ML 2 ML AMP ONE (07:06)
--- NOTE | 2021-09-26 07:27 | P.PCN ---
Date of Procedure: 09/26/21 Procedure(s) Performed: Brief history: Patient is a pleasant 55-year-old white male scheduled for an elective upper endoscopy as well as colonoscopy as a part of evaluation of GERD/iron deficiency anemia/intermittent epigastric pain and prior history of colon polyps Procedure performed: Esophagogastroduodenoscopy with biopsy Colonoscopy with snare polypectomy Preoperative diagnosis: GERD/epigastric pain Iron deficiency anemia and history of colon polyps Anesthesia: MAC Procedure: After informed consent was obtained from the patient was brought into the endoscopy unit and IV sedation was administered by anesthesia under continuous monitoring. Initially upper endoscopy was done. The Olympus GF 160 video endoscope was inserted inserted into the mouth and esophagus intubated without any difficulty and was gradually advanced into the stomach and duodenum and carefully examined. The bulb and second part of the duodenum appeared normal. Abscesses were done from the duodenum to rule out celiac disease. The scope was then withdrawn into the stomach adequately insufflated with air and upon careful examination the antrum had mild gastritis and biopsies were done from this area. The body, cardia and fundus appeared normal. The scope was then withdrawn into the esophagus. The GE junction was located at 40 cm to the incisors. It appeared regular with no erythema erosions or ulcerations. Rest of the esophagus appeared normal. Patient tolerated the procedure well. At this time the patient continued to remain sedation. Initial digital rectal examination was normal. Olympus CF 160 video colonoscope was then inserted into the rectum and gradually advanced to the cecum without any difficulty. Careful examination was performed as the scope was gradually being withdrawn. The prep was excellent. The cecum, ascending colon, transverse colon, appeared normal. In the descending colon there was a 5 mm a polyp that was removed by snare polypectomy. Rest of the descending colon, sigmoid colon and rectum appeared normal. Retroflexion was performed in the rectum and no lesions were noted. Patient tolerated the procedure well. Impression: 1. Upper endoscopy revealed mild antral gastritis but no evidence of esophagitis or peptic ulcer disease 2. Colonoscopy revealed a 5 mm descending colon polyp serous was snare polypectomy. Recommendations: Findings of this examination were discussed with the patient as well as his family. He was advised to follow with the biopsy results.If the biopsy reveals adenoma he can have a repeat colonoscopy in 5 years.
[2021-09-26 08:05] VITALS: BP 140/68; PULSE 64; RESP 18
== END 2021-09-26 08:28 | disposition home or self-care (01) ==
LOC: ORWHC2ENDO 05:58
PROVIDERS: ATTEND Internal Medicine Gastroenterology
DX: D12.4 Benign neoplasm of descending colon (principal); D50.9 Iron deficiency anemia, unspecified; K21.9 Gastro-esophageal reflux disease without esophagitis; K31.9 Disease of stomach and duodenum, unspecified; Z86.010 Personal history of colon polyps
CPT/HCPCS: 45385; 43239; 88305; J2250; J3010; J2704; J2001